=== PATIENT | female | born 2000 | race Caucasian/White ===

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

== ENCOUNTER 2018-05-01 08:31 | Emergency (ER) | END 2018-05-01 10:18 | disposition home or self-care (01) ==

== ENCOUNTER 2018-09-30 21:56 | Emergency (ER) | payer OTHER ==
[~2018-09-30] VITALS: Ht 165.1 cm; Wt 69.0 kg
[~2018-09-30 21:56] MED LIST changes: -ALBU8.5H3; +ALBU8.5H8; +ALBU8.5H8 INH; +MED4DP PO; +NAPR-985 PO
[2018-09-30 22:01] VITALS: Ht 165.1 cm; Wt 69.0 kg
[2018-10-01] MEDS ORDERED: SOD CHLORIDE 0.9% 1,000 ML IV STA (03:44)
[2018-10-01] MEDS ORDERED: ONDANSETRON 4 MG INJ IV STA (03:44)
[2018-10-01] MEDS ORDERED: ONDA4TAB14 PO (05:08)
--- NOTE | 2018-10-01 05:10 | ERD ---
ER Documentation Chief Complaint Chief Complaint vomiting x 2 days, states 5 weeks . denies vb HPI 18-year-old female who is approximately 5 weeks complaining of vomiting and nausea for the past 2 days. She denies any abdominal pain or vaginal bleeding. No dysuria hematuria or frequency. Has not taken any medication for her symptoms. No fever. ROS All systems reviewed and are negative except as per history of present illness. Medications Home Meds Active Scripts Ondansetron (Ondansetron Odt) 4 Mg Tab.rapdis, 4 MG PO Q6H PRN for NAUSEA AND/OR VOMITING, #15 TAB Prov:SHERMAN HSU PA-C 10/01/18 Naproxen* (Naprosyn*) 500 Mg Tablet, 500 MG PO BID PRN for PAIN AND/OR INFLAMMATION, #30 TAB Prov:EVELYN TANNER PA-C 05/01/18 Methylprednisolone* (Medrol* DOSE PACK) 4 Mg/Dose-Pack Tab.ds.pk, 4 MG PO . DIRECTED for 6 Days, PACKET Prov:MERT GIBSON 04/16/17 Albuterol Sulfate* (Proair HFA*) 8.5 Gm Hfa.aer.ad, 2 PUFF INH Q4, #1 INHALER Prov:MERT GIBSON 04/16/17 Reported Medications Beclomethasone Dip* (Qvar 40*) 7.3 Gm Inha 12/22/10 Albuterol Sulfate* (Proair HFA*) 8.5 Gm Hfa.aer.ad 12/22/10 Allergies Allergies: Coded Allergies: No Known Allergies (Verified Allergy, Mild, 05/29/13) PMhx/Soc History of Surgery: Yes (APPENDECTOMY) Anesthesia Reaction: No Hx Neurological Disorder: No Hx Respiratory Disorders: Yes (ASTHMA) Hx Cardiac Disorders: No Hx Psychiatric Problems: No Hx Miscellaneous Medical Probl: No Hx Alcohol Use: No Hx Substance Use: Yes (MARIJUANA) Hx Tobacco Use: No FmHx Family History: No diabetes Physical Exam Vitals Vital Signs Date Temp Pulse Resp B/P (MAP) Pulse Ox O2 O2 Flow FiO2 Time Delivery Rate 09/30/18 98.5 81 18 131/70 100 22:01 (90) Physical Exam INITIAL VITAL SIGNS: Reviewed by me GENERAL: Awake, alert and oriented x 4, well appearing, nontoxic, speaking in full sentences. No acute distress HEAD: Atraumatic NECK: Supple. No masses. Full range of motion. No meningismus. No midline tenderness. EYES: EOMI. PERRL. RESPIRATORY: Clear to auscultation bilaterally. Symmetric chest wall rise. No wheezing or rales. No accessory muscle use. CV: Regular rate and rhythm. No murmurs, rubs, or gallops. ABDOMEN: Soft, non-distended. Nontender. Negative [place]. Negative McBurneys point tenderness. No CVA tenderness bilaterally. No guarding. No rebound. Result Diagram: 10/01/18 0402 Results 24 hrs Laboratory Tests Test 10/01/18 04:02 White Blood Count 10.4 10^3/ul Red Blood Count 3.92 10^6/ul Hemoglobin 12.1 g/dl Hematocrit 35.2 % Mean Corpuscular Volume 89.8 fl Mean Corpuscular Hemoglobin 30.9 pg Mean Corpuscular Hemoglobin Concent 34.4 g/dl Red Cell Distribution Width 12.5 % Platelet Count 239 10^3/UL Mean Platelet Volume 11.1 fl Immature Granulocytes % 0.400 % Neutrophils % 83.7 % Lymphocytes % 9.7 % Monocytes % 6.0 % Eosinophils % 0.0 % Basophils % 0.2 % Nucleated Red Blood Cells % 0.0 /100WBC Immature Granulocytes # 0.040 10^3/ul Neutrophils # 8.7 10^3/ul Lymphocytes # 1.0 10^3/ul Monocytes # 0.6 10^3/ul Eosinophils # 0.0 10^3/ul Basophils # 0.0 10^3/ul Nucleated Red Blood Cells # 0.0 10^3/ul Urine Color YELLOW Urine Clarity CLOUDY Urine pH 6.0 Urine Specific [place] 1.034 Urine Ketones 2+ mg/dL Urine Nitrite NEGATIVE mg/dL Urine Bilirubin NEGATIVE mg/dL Urine Urobilinogen NEGATIVE mg/dL Urine Leukocyte Esterase NEGATIVE Jillian/ul Urine Microscopic RBC 8 /HPF Urine Microscopic WBC 5 /HPF Urine Squamous Epithelial Cells MANY /HPF Urine Bacteria FEW /HPF Urine Mucus MANY /HPF Urine Hemoglobin NEGATIVE mg/dL Urine Glucose NEGATIVE mg/dL Urine Total Protein 2+ mg/dl Current Medications Medications Dose Sig/Maxim Start Time Status Last (Trade) Ordered Route PRN Stop Time Admin Dose Reason Admin Sodium 1,000 ml @ Q1H STAT 10/01/18 DC 10/01/18 Chloride 1,000 mls/hr IV 03:44 03:59 10/01/18 04:43 Ondansetron 4 mg ONCE STAT 10/01/18 DC 10/01/18 HCl (Zofran IV 03:44 03:59 Inj) 10/01/18 03:46 Procedures/MDM 18-year-old female presents with nausea and vomiting during . Labs are nonacute. Patient felt better after fluids and Zofran and was discharged with Zofran. Ultrasound shows single IUP with heart tones. Patient counseled regarding my diagnostic impression and care plan. Prior to discharge all questions answered. Pt agrees with treatment plan and understands strict return precautions. Pt is instructed to follow up with primary care provider within 24- 48 hours. Precautionary instructions provided including instructions to return to the ER if not improving or for any worsening or changing symptoms or concerns. Departure Diagnosis: Primary Impression: Nausea and vomiting during Condition: Stable Patient Instructions: Hyperemesis Gravidarum Additional Instructions: Call your primary care doctor TOMORROW for an appointment during the next 1-2 d ays.See the doctor sooner or return here if your condition worsens before your appointment time. SHERMAN HSU PA-C Oct 01, 2018 05:10
[2018-10-01 05:23] VITALS: BP 125/63; PULSE 64; RESP 18
== END 2018-10-01 05:56 | disposition home or self-care (01) ==
LOC: FTE 21:56
DX: O21.9 Vomiting of pregnancy, unspecified (principal); O99.511 Diseases of the respiratory system complicating pregnancy, first trimester; J45.909 Unspecified asthma, uncomplicated; Z3A.01 Less than 8 weeks gestation of pregnancy
CPT/HCPCS: 36415; 76801; 81001; 84702; 85025; 86900; 86901; 96374; J2405; J7030; Z7502